=== PATIENT | male | born 1980 | race American Indian/Alaskan Native ===

== ENCOUNTER 2017-09-10 16:40 | Emergency (ER) | payer OTHER ==
[2017-09-10 17:32] LABS: Basophils % (Auto) 0.5 % (0.0-1.8); Eosinophils % (Auto) 1.5 % (0.0-4.3); Hematocrit 50.7 % (35.5-45.6); Hemoglobin 17.1 gm/dl (11.8-15.2); Mean Corpuscular HGB Conc 34 % (32-34); Mean Corpuscular Hemoglobin 30 pg (28-32); Mean Corpuscular Volume 91 fl (84-94); Platelet Count 201 K/mm3 (140-440); Red Cell Distribution Width 13.8 % (13.2-15.2); White Blood Count 7.9 K/mm3 (4.5-11.0)
[2017-09-10 17:35] LABS: Bilirubin,Urine NEG (Negative); Blood,Urine SM (Negative); Ketones,Urine 20 mg/dL (Negative); Leukocyte Esterase,Urine NEG (Negative); Mucus,Urine FEW /HPF; Nitrite,Urine NEG (Negative); Urobilinogen,Urine < 2.0 mg/dL (<2.0)
[2017-09-10 17:42] LABS: Anion Gap 25 mmol/L; BUN/Creatinine Ratio 18; Blood Urea Nitrogen 20 mg/dL (9-20); Calcium 9.6 mg/dL (8.4-10.2); Carbon Dioxide 20 mmol/L (22-30); Chloride 91.7 mmol/L (98-107); Glucose 445 mg/dL (75-100); Potassium 4.5 mmol/L (3.6-5.0); Sodium 132 mmol/L (137-145)
[2017-09-10] MEDS ORDERED: NACL 0.9% 1000 ML 1,000 ML IV ONE (17:42)
--- NOTE | 2017-09-10 18:19 | Emergency Department Report ---
HPI - General Chief Complaint: Hyperglycemia Time Seen by Provider: 09/10/17 17:31 - HPI HPI: This is a 37 year-old male presents to the emergency department , sent in by his PCP Dr. Sanchez, with complaint of elevated blood glucose without the diagnosis of diabetes previously. The only Past medical history the patient has his 2 previous DVTs and he is on Eliquis and takes it compliantly. He has been having some increased urination, increased thirst, one episode of nausea with vomiting and some generalized fatigue. No recent travel or sick contacts at home. He has not taken anything for his symptoms prior to presentation. ED Past Medical Hx - Past Medical History Additional medical history: DVT 2006,2010 - Surgical History Past Surgical History?: No Additional Surgical History: thrombolectomy - Social History Smoking Status: Never Smoker Substance Use Type: None - Medications Home Medications: Home Medications Medication Instructions Recorded Confirmed Last Taken Type Apixaban [Eliquis] 5 mg PO BID 09/10/17 09/10/17 09/10/17 History Ranitidine HCl [Zantac 150 MG TAB] 150 mg PO QDAY PRN 09/10/17 09/10/17 Unknown History metFORMIN [Glucophage] 500 mg PO BID #60 tablet 09/10/17 Unknown Rx ED Review of Systems ROS: Stated complaint: BLOOD SUGAR ELEVATED Other details as noted in HPI Comment: All other systems reviewed and negative Constitutional: other (fatigue). denies: fever Eyes: denies: eye pain, eye discharge, vision change ENT: denies: ear pain, throat pain Respiratory: denies: cough, shortness of breath, wheezing Cardiovascular: denies: chest pain, palpitations Endocrine: increased thirst, increased urine Gastrointestinal: nausea, vomiting Genitourinary: frequency. denies: dysuria Musculoskeletal: denies: back pain, joint swelling, arthralgia Skin: denies: rash, lesions Neurological: denies: headache, weakness, paresthesias Physical Exam - Physical Exam Vital Signs: Vital Signs 09/10/17 16:48 Temperature 99.2 F Pulse Rate 115 H Respiratory 20 Rate Blood Pressure 138/88 O2 Sat by Pulse 94 Oximetry Physical Exam: GENERAL: The patient is well-developed well-nourished. HENT: Normocephalic. Atraumatic. Patient has moist mucous membranes. EYES: Extraocular motions are intact. Pupils equal reactive to light bilaterally. NECK: Supple. Trachea is midline. CHEST/LUNGS: Clear to auscultation. There is no respiratory distress noted. HEART/CARDIOVASCULAR: Regular. There is mild tachycardia. There is no gallop rub or murmur. ABDOMEN: Abdomen is soft, nontender. Patient has normal bowel sounds. There is no abdominal distention. Obese habitus. SKIN: Skin is warm and dry. NEURO: The patient is awake, alert, and oriented. The patient is cooperative. The patient has no focal neurologic deficits. The patient has normal speech. MUSCULOSKELETAL: There is no tenderness or deformity. There is no limitation range of motion. There is no evidence of acute injury. ED Course Vital Signs 09/10/17 16:48 Temperature 99.2 F Pulse Rate 115 H Respiratory 20 Rate Blood Pressure 138/88 O2 Sat by Pulse 94 Oximetry ED Medical Decision Making - Lab Data Result diagrams: 09/10/17 17:01 09/10/17 17:01 - Medical Decision Making This patient presented with a blood sugar of about 450 and new-onset diabetes. Patient does have a elevation in the anion gap but there is no venous acidosis. He does not appear to be in diabetic ketoacidosis. He was given 1.5 L of IV fluid resuscitation and a total of 14 units of regular insulin and his blood sugar came down to about 250. Patient says he is feeling better. Vital signs stable. I started him on metformin. We discussed dietary and lifestyle changes. He will follow-up with his primary care doctor in the next few days. He will return to the ER with any worsening of symptoms or any acute distress. - Differential Diagnosis DKA, HHNK Critical Care Time: No Critical care attestation.: If time is entered above; I have spent that time in minutes in the direct care of this critically ill patient, excluding procedure time. ED Disposition Clinical Impression: Diabetes mellitus, new onset Disposition: DC-01 TO HOME OR SELFCARE Is pt being admited?: No Condition: Stable Instructions: Diabetes Mellitus Type 2 in Adults (ED) Additional Instructions: Please follow-up with your primary care physician in the next few days. I have started you on a medication called metformin/Glucophage that is to be taken twice daily as a treatment for your diabetes. Do not skip meals while taking this medication as it could cause you to have a low blood sugar which can be equally dangerous. Eat 3 sensible healthy meals. Please try and stay away from foods that are high in sugar, carbohydrates and starches to help with your blood sugar level. Return to the emergency Department with any worsening of her symptoms or any acute distress. Prescriptions: metFORMIN [Glucophage] 500 mg PO BID #60 tablet Referrals: PRIMARY CARE, [Primary Care Provider] - 3-5 Days Time of Disposition: 21:56
[2017-09-10] MEDS ORDERED: NACL 0.9% 500 ML 500 ML IV SCH (20:00)
[2017-09-10 22:16] VITALS: BP 117/87
== END 2017-09-10 22:18 | disposition home or self-care (01) ==
LOC: ED 16:40
DX: E11.9 Type 2 diabetes mellitus without complications (principal)
CPT/HCPCS: 36415; 80048; 81001; 82805; 82962; 85025; 96361; 96374; 96375; 99284; J7030; J7040; J1815

== ENCOUNTER 2018-04-04 18:36 | Emergency (ER) | payer OTHER ==
[2018-04-04 18:49] VITALS: BP 140/80
[2018-04-04 19:24] LABS: Hematocrit 46.8 % (35.5-45.6); Hemoglobin 15.2 gm/dl (11.8-15.2); Mean Corpuscular HGB Conc 33 % (32-34); Mean Corpuscular Hemoglobin 29 pg (28-32); Mean Corpuscular Volume 90 fl (84-94); Platelet Count 245 K/mm3 (140-440); Red Blood Count 5.19 M/mm3 (3.65-5.03); Red Cell Distribution Width 15.4 % (13.2-15.2)
[2018-04-04 19:34] LABS: INR 0.95 (0.87-1.13)
[2018-04-04 19:35] LABS: Partial Thromboplastin Time 25.9 Sec. (24.2-36.6)
[2018-04-04 19:57] LABS: BUN/Creatinine Ratio 15; Blood Urea Nitrogen 16 mg/dL (9-20); Calcium 9.4 mg/dL (8.4-10.2); Hemolysis Index 6
[2018-04-04 20:05] LABS: Bilirubin,Urine NEG (Negative); Blood,Urine SM (Negative); Color,Urine Yellow (Yellow); Mucus,Urine FEW /HPF; Protein,Urine <15 mg/dL mg/dL (Negative); Urobilinogen,Urine < 2.0 mg/dL (<2.0); WBC,Urine < 1.0 /HPF (0.0-6.0)
== END 2018-04-04 23:45 | disposition left against medical advice (07) ==
LOC: ED 18:36
DX: R31.9 Hematuria, unspecified (principal); Z53.21 Procedure and treatment not carried out due to patient leaving prior to being seen by health care provider
CPT/HCPCS: 36415; 80048; 81001; 85027; 85610; 85730